=== PATIENT | male | born 1970 | race African-American/Black ===

== ENCOUNTER 2024-07-28 06:54 | Inpatient (IN) | payer OTHER ==
[~2024-07-28] VITALS: Ht 198.1 cm; Wt 155.1 kg
[2024-07-28 06:55] VITALS: O2SAT 97
[2024-07-28] MEDS: PIPERACILLIN/TAZO 3.375G/50ML 50 ML IV ONE (07:13)
[2024-07-28] MEDS: SODIUM CHLORIDE 0.9% (SEPSIS BOLUS) IV ONE (07:13)
[2024-07-28 07:30] LABS: CHLORIDE 109 mEq/L (98-107); POTASSIUM 3.4 mEq/L (3.5-5.1); SODIUM 143 mEq/L (136-145)
[2024-07-28 07:31] LABS: CALCIUM 7.3 mg/dL (8.7-10.4); CARBON DIOXIDE 27 mEq/L (21-32)
[2024-07-28 07:33] LABS: PROTHROMBIN TIME 11.4 sec (9.6-11.0)
[2024-07-28 07:36] LABS: CREATININE 1.3 mg/dL (0.6-1.3); GLUCOSE 217 mg/dL (70-105); UREA NITROGEN BLOOD 39 mg/dL (9-23)
[2024-07-28 07:37] LABS: TROPONIN I HIGH SENSITIVITY 41 ng/L (3.0-53)
[2024-07-28 07:38] LABS: ALANINE AMINOTRANSFERASE 18 IU/L (10-49); ALBUMIN 2.5 g/dL (3.2-4.8); ASPARTATE AMINOTRANSFERASE 15 IU/L (<34); BILIRUBIN TOTAL 0.2 mg/dL (0.1-1.0); PROTEIN TOTAL 4.2 g/dL (6.0-8.3)
[2024-07-28 07:43] LABS: LACTIC ACID 4.2 mmol/L (0.4-2.0)
[2024-07-28 07:45] LABS: BILIRUBIN DIRECT < 0.1 mg/dL (<=3.0)
[2024-07-28] MEDS: VANCOMYCIN 1G PREMIX 200 ML IV ONE (07:49)
[2024-07-28 07:58] LABS: BASOPHILS % 0.3 % (0.0-2.0); DIFFERENTIAL COMMENT 0; EOSINOPHILS % 0.5 % (0.0-5.0); LYMPHOCYTES % 48.5 % (20.0-50.0); MEAN CORPUSCULAR HGB CONC 33.1 g/dL (31.0-37.0); MEAN CORPUSCULAR VOLUME 81.6 fL (80.0-94.0); MONOCYTES % 8.1 % (2.0-8.0); NEUTROPHILS % 42.6 % (40.0-76.0); PLATELET 215 x1000/uL (130-400); RED BLOOD CELL COUNT 2.41 mill/uL (4.7-6.1); RED CELL DISTRIBUTION WIDTH 14.7 % (11.6-14.6); WHITE BLOOD COUNT 7.9 x1000/uL (4.5-11.0)
[2024-07-28 08:22] LABS: HEMATOCRIT. 19.6 % (42.0-52.0); HEMOGLOBIN. 6.5 g/dL (14.0-18.0)
[2024-07-28 20:23] LABS: HEMATOCRIT 21.3 % (42.0-52.0)
[2024-07-28] MEDS: HYDROCODONE/ACETAMINOPHEN 5/325MG TABLET PO PRN (23:40)
[2024-07-29] VITALS (10 sets, daily range): BP systolic 126–149; BP diastolic 78–102; PULSE 96–119; RESP 13–25; TEMP 36.4–37.1; O2SAT 92–100
[2024-07-29] MEDS ORDERED: DOCUSATE SODIUM 100MG CAPSULE PO PRN (00:15)
[2024-07-29] MEDS ORDERED: IPRATROPIUM/ALBUTEROL 0.5-3(2.5)MG/3ML NEB HHN PRN (00:15)
[2024-07-29] MEDS ORDERED: ONDANSETRON HCL 4MG/2ML INJ IV PRN (00:15)
[2024-07-29] MEDS ORDERED: MAGNESIUM/ALUMINUM HYDROXIDE/SIMETHICONE 30ML UDC PO PRN (00:15)
[2024-07-29] MEDS ORDERED: ACETAMINOPHEN 325MG TABLET PO PRN (00:15)
[2024-07-29] MEDS: POTASSIUM CHLORIDE 20MEQ TABLET SR PO NR ×2 (03:09→11:22)
[2024-07-29] MEDS: SODIUM CHLORIDE 0.9% 1,000 ML IV SCH (03:10)
[2024-07-29 03:32] LABS: HEPATITIS B SURFACE ANTIGEN NEGATIVE (Negative)
[2024-07-29 03:53] LABS: HEPATITIS C AB NON REACTIVE (Neg) (Negative)
[2024-07-29] MEDS: ACETAMINOPHEN 325MG TABLET PO PRN (04:48)
[2024-07-29] MEDS: CLONIDINE 0.1MG TABLET PO PRN (06:58)
[2024-07-29 07:47] LABS: CREATINE KINASE MB FRACTION 1.6 ng/mL (0.5-3.6); TROPONIN I HIGH SENSITIVITY 51 ng/L (3.0-53)
[2024-07-29 07:49] LABS: IRON 142 ug/dL (65-175)
[2024-07-29 07:52] LABS: CREATINE KINASE 138 IU/L (46-171); TOTAL IRON BINDING CAPACITY 209 ug/dl (250-425)
[2024-07-29] MEDS ORDERED: DEXTROSE 50% WATER 50ML SYRINGE IV PRN (08:30)
[2024-07-29] MEDS ORDERED: NALOXONE HCL 0.4MG/ML VIAL IV PRN (09:00)
[2024-07-29] MEDS: INSULIN LISPRO 100 UNITS/ML SUBCUT SCH (09:00)
[2024-07-29] MEDS: BLOOD SUGAR DIAGNOSTIC STRIP TEST SCH (09:47)
[2024-07-29] MEDS ORDERED: HYDR25TA PO (13:32)
[2024-07-29] MEDS ORDERED: IBUP-2030 PO (13:32)
[2024-07-29] MEDS ORDERED: SENN-362 PO (13:32)
[2024-07-29] MEDS ORDERED: LOSA50TA41 PO (13:32)
[2024-07-29] MEDS ORDERED: METH-773 PO (13:32)
[2024-07-29 19:15] LABS: BASOPHILS % 0.5 % (0.0-2.0); DIFFERENTIAL COMMENT 0; EOSINOPHILS % 2.1 % (0.0-5.0); MEAN CORPUSCULAR HEMOGLOBIN 27.5 pg (28.0-32.0); MEAN CORPUSCULAR HGB CONC 33.2 g/dL (31.0-37.0); MEAN CORPUSCULAR VOLUME 82.7 fL (80.0-94.0); MONOCYTES % 9.1 % (2.0-8.0); NEUTROPHILS % 50.3 % (40.0-76.0); PLATELET 194 x1000/uL (130-400); RED BLOOD CELL COUNT 2.22 mill/uL (4.7-6.1); RED CELL DISTRIBUTION WIDTH 14.8 % (11.6-14.6); WHITE BLOOD COUNT 9.5 x1000/uL (4.5-11.0)
[2024-07-29 19:22] LABS: CHLORIDE 108 mEq/L (98-107); POTASSIUM 3.9 mEq/L (3.5-5.1); SODIUM 142 mEq/L (136-145)
[2024-07-29 19:23] LABS: CARBON DIOXIDE 29 mEq/L (21-32)
[2024-07-29 19:28] LABS: GLUCOSE 107 mg/dL (70-105); TROPONIN I HIGH SENSITIVITY 30 ng/L (3.0-53); UREA NITROGEN BLOOD 20 mg/dL (9-23)
[2024-07-29 19:30] LABS: CREATINE KINASE 113 IU/L (46-171)
[2024-07-29 20:14] LABS: HEMATOCRIT. 18.4 % (42.0-52.0); HEMOGLOBIN. 6.1 g/dL (14.0-18.0)
[2024-07-29] MEDS ORDERED: *PATIENT'S OWN MEDICATION STORAGE XX SCH (21:45)
[2024-07-29] MEDS: POLYETHYLENE GLYCOL 3350 (17GM) 1 DOSE PACK PO SCH (22:30)
[2024-07-29] MEDS: DOCUSATE SODIUM SUGAR FREE 100MG/10ML UDC NG SCH (22:38)
[2024-07-30] VITALS (20 sets, daily range): BP systolic 94–149; BP diastolic 56–94; PULSE 82–103; RESP 13–21; TEMP 36.50292–37.3; O2SAT 97–99
[2024-07-30] MEDS: METOCLOPRAMIDE HCL 10MG/2ML VIAL IV SCH (00:24)
[2024-07-30 06:56] LABS: BASOPHILS % 0.5 % (0.0-2.0); DIFFERENTIAL COMMENT 0; EOSINOPHILS % 2.4 % (0.0-5.0); LYMPHOCYTES % 36.6 % (20.0-50.0); MEAN CORPUSCULAR HEMOGLOBIN 28.6 pg (28.0-32.0); MEAN CORPUSCULAR HGB CONC 33.7 g/dL (31.0-37.0); MEAN PLATELET VOLUME 9.1 fl (7.4-10.4); MONOCYTES % 8.7 % (2.0-8.0); NEUTROPHILS % 51.8 % (40.0-76.0); PLATELET 182 x1000/uL (130-400); RED BLOOD CELL COUNT 2.24 mill/uL (4.7-6.1); RED CELL DISTRIBUTION WIDTH 16.1 % (11.6-14.6); WHITE BLOOD COUNT 9.9 x1000/uL (4.5-11.0)
[2024-07-30 07:59] LABS: THYROID STIMULATING HORMONE 3.11 uIU/mL (0.55-4.78)
[2024-07-30 08:08] LABS: CALCIUM 8.2 mg/dL (8.7-10.4); CHLORIDE 108 mEq/L (98-107); POTASSIUM 3.7 mEq/L (3.5-5.1); SODIUM 141 mEq/L (136-145)
[2024-07-30 08:09] LABS: CARBON DIOXIDE 27 mEq/L (21-32)
[2024-07-30 08:14] LABS: GLUCOSE 112 mg/dL (70-105); TRIGLYCERIDE 100 mg/dL (0-150); UREA NITROGEN BLOOD 18 mg/dL (9-23)
[2024-07-30 08:15] LABS: LDL CHOLESTEROL 47 mg/dL (5-100)
[2024-07-30 08:16] LABS: CHOLESTEROL 95 mg/dL (<200); HDL CHOLESTEROL 27 mg/dL (>55)
[2024-07-30 08:58] LABS: HEMOGLOBIN. 6.4 g/dL (14.0-18.0)
[2024-07-30] MEDS: NA PHOS,M-B/NA PHOS,DI-BA ENEMA 118ML PR NR (15:52)
[2024-07-30] MEDS: LACTULOSE 20G/30ML UDC PO SCH (15:52)
[2024-07-30] MEDS: PANTOPRAZOLE SODIUM 40 MG/VIAL IV SCH (21:32)
[2024-07-30 21:59] LABS: HEMATOCRIT 21.4 % (42.0-52.0); HEMOGLOBIN 7.4 g/dL (14.0-18.0)
[2024-07-31] VITALS (16 sets, daily range): BP systolic 92–159; BP diastolic 69–91; PULSE 79–108; RESP 14–27; TEMP 36.61404–37.11408; O2SAT 95–100
[2024-07-31] MEDS: HYDROCODONE/ACETAMINOPHEN 5/325MG TABLET PO PRN (00:51)
[2024-07-31 06:21] LABS: CHLORIDE 108 mEq/L (98-107); POTASSIUM 3.4 mEq/L (3.5-5.1); SODIUM 142 mEq/L (136-145)
[2024-07-31 06:23] LABS: CALCIUM 8.1 mg/dL (8.7-10.4); CARBON DIOXIDE 29 mEq/L (21-32)
[2024-07-31 06:28] LABS: GLUCOSE 103 mg/dL (70-105); UREA NITROGEN BLOOD 15 mg/dL (9-23)
[2024-07-31 06:30] LABS: ALANINE AMINOTRANSFERASE 26 IU/L (10-49); ALBUMIN 2.9 g/dL (3.2-4.8); ASPARTATE AMINOTRANSFERASE 23 IU/L (<34); BILIRUBIN DIRECT 0.1 mg/dL (<=3.0)
[2024-07-31 06:31] LABS: BILIRUBIN TOTAL 0.4 mg/dL (0.1-1.0); PROTEIN TOTAL 4.8 g/dL (6.0-8.3)
[2024-07-31 06:37] LABS: FERRITIN 41 ng/mL (22-322); FOLIC ACID (FOLATE) SERUM 8.99 ng/mL (>5.38); VITAMIN B12 SERUM 656 pg/mL (211-911)
[2024-07-31 07:28] LABS: BASOPHILS % 0.4 % (0.0-2.0); DIFFERENTIAL COMMENT 0; EOSINOPHILS % 1.8 % (0.0-5.0); LYMPHOCYTES % 33.5 % (20.0-50.0); MEAN CORPUSCULAR HGB CONC 34.3 g/dL (31.0-37.0); MEAN CORPUSCULAR VOLUME 84.5 fL (80.0-94.0); MEAN PLATELET VOLUME 8.8 fl (7.4-10.4); MONOCYTES % 8.2 % (2.0-8.0); NEUTROPHILS % 56.1 % (40.0-76.0); PLATELET 176 x1000/uL (130-400); RED BLOOD CELL COUNT 2.17 mill/uL (4.7-6.1); RED CELL DISTRIBUTION WIDTH 16.3 % (11.6-14.6); WHITE BLOOD COUNT 8.9 x1000/uL (4.5-11.0)
[2024-07-31 08:16] LABS: HEMOGLOBIN. 6.3 g/dL (14.0-18.0)
[2024-07-31 08:17] LABS: HEMATOCRIT. 18.3 % (42.0-52.0)
[2024-07-31] MEDS: DOCUSATE SODIUM 100MG CAPSULE PO SCH (09:00)
[2024-07-31] MEDS: SUCRALFATE 1G TABLET PO SCH (09:42)
[2024-07-31] MEDS ORDERED: IOHEXOL-350 100 ML BOTTLE ONE (10:31)
[2024-07-31] MEDS: POTASSIUM CHLORIDE 20MEQ TABLET SR PO NR (13:50)
[2024-08-01] VITALS (21 sets, daily range): BP systolic 107–147; BP diastolic 72–100; PULSE 78–119; RESP 13–23; TEMP 36.61404–37.1; O2SAT 92–99
[2024-08-01 00:09] LABS: HEMATOCRIT 21.1 % (42.0-52.0); HEMOGLOBIN 7.2 g/dL (14.0-18.0)
[2024-08-01 00:18] LABS: INR 0.9; PROTHROMBIN TIME 10.1 sec (9.6-11.0)
[2024-08-01 12:23] LABS: HEMATOCRIT 24.9 % (42.0-52.0); HEMOGLOBIN 8.3 g/dL (14.0-18.0)
[2024-08-01 12:44] LABS: INR 0.9; PROTHROMBIN TIME 10.5 sec (9.6-11.0)
[2024-08-01 22:34] LABS: BASOPHILS % 0.4 % (0.0-2.0); EOSINOPHILS % 2.4 % (0.0-5.0); HEMATOCRIT. 26.5 % (42.0-52.0); HEMOGLOBIN. 8.7 g/dL (14.0-18.0); LYMPHOCYTES % 28.4 % (20.0-50.0); MEAN CORPUSCULAR HEMOGLOBIN 27.9 pg (28.0-32.0); MEAN CORPUSCULAR HGB CONC 32.7 g/dL (31.0-37.0); MEAN CORPUSCULAR VOLUME 85.2 fL (80.0-94.0); MEAN PLATELET VOLUME 8.6 fl (7.4-10.4); MONOCYTES % 8.4 % (2.0-8.0); NEUTROPHILS % 60.4 % (40.0-76.0); PLATELET 233 x1000/uL (130-400); RED BLOOD CELL COUNT 3.11 mill/uL (4.7-6.1); RED CELL DISTRIBUTION WIDTH 16.6 % (11.6-14.6); WHITE BLOOD COUNT 8.1 x1000/uL (4.5-11.0)
[2024-08-01 22:43] LABS: CHLORIDE 108 mEq/L (98-107); POTASSIUM 3.4 mEq/L (3.5-5.1); SODIUM 143 mEq/L (136-145)
[2024-08-01 22:44] LABS: CALCIUM 8.5 mg/dL (8.7-10.4); CARBON DIOXIDE 27 mEq/L (21-32)
[2024-08-01 22:49] LABS: CREATININE 1.2 mg/dL (0.6-1.3); GLUCOSE 116 mg/dL (70-105); UREA NITROGEN BLOOD 15 mg/dL (9-23)
[2024-08-02] VITALS (16 sets, daily range): BP systolic 108–156; BP diastolic 79–105; PULSE 59–100; RESP 11–29; TEMP 36.4–37.1; O2SAT 81–99
[2024-08-02 04:59] LABS: BASOPHILS % 0.4 % (0.0-2.0); HEMATOCRIT. 23.4 % (42.0-52.0); LYMPHOCYTES % 34.8 % (20.0-50.0); MEAN CORPUSCULAR HEMOGLOBIN 29.1 pg (28.0-32.0); MEAN CORPUSCULAR VOLUME 85.7 fL (80.0-94.0); MEAN PLATELET VOLUME 8.5 fl (7.4-10.4); MONOCYTES % 9.8 % (2.0-8.0); PLATELET 218 x1000/uL (130-400); RED BLOOD CELL COUNT 2.73 mill/uL (4.7-6.1); RED CELL DISTRIBUTION WIDTH 16.7 % (11.6-14.6); WHITE BLOOD COUNT 6.7 x1000/uL (4.5-11.0)
[2024-08-02 05:06] LABS: CHLORIDE 110 mEq/L (98-107); POTASSIUM 3.7 mEq/L (3.5-5.1); SODIUM 143 mEq/L (136-145)
[2024-08-02 05:07] LABS: CALCIUM 8.2 mg/dL (8.7-10.4); CARBON DIOXIDE 28 mEq/L (21-32)
[2024-08-02 05:12] LABS: CREATININE 1.1 mg/dL (0.6-1.3); GLUCOSE 108 mg/dL (70-105); UREA NITROGEN BLOOD 13 mg/dL (9-23)
[2024-08-02 05:14] LABS: ALANINE AMINOTRANSFERASE 39 IU/L (10-49); ASPARTATE AMINOTRANSFERASE 31 IU/L (<34); BILIRUBIN TOTAL 0.3 mg/dL (0.1-1.0); PROTEIN TOTAL 5.2 g/dL (6.0-8.3)
[2024-08-02 05:39] LABS: INR 0.9; PROTHROMBIN TIME 10.2 sec (9.6-11.0)
[2024-08-02] MEDS ORDERED: PANT40VI IV (15:21)
[2024-08-02] MEDS: MORPHINE SULFATE 2 MG/ML INJ (NOT FOR IM USE) IV PRN (20:17)
== END 2024-08-02 22:18 | disposition short-term general hospital (02) | DRG 872 ==
LOC: ER 07:16 → 5EST 08:54 → EDBEDREQ 08:57
PROVIDERS: ADMIT Internal Medicine; ATTEND Internal Medicine
PROC: 30233N1 Transfusion of Nonautologous Red Blood Cells into Peripheral Vein, Percutaneous Approach (ICD-10-PCS; principal; 2024-07-28)
DX: A41.9 Sepsis, unspecified organism (principal); K92.2 Gastrointestinal hemorrhage, unspecified; E87.20 Acidosis, unspecified; D64.9 Anemia, unspecified; E87.6 Hypokalemia; R73.9 Hyperglycemia, unspecified; I10 Essential (primary) hypertension; I25.10 Atherosclerotic heart disease of native coronary artery without angina pectoris; K59.00 Constipation, unspecified; E88.09 Other disorders of plasma-protein metabolism, not elsewhere classified; M54.2 Cervicalgia; I95.9 Hypotension, unspecified; Z87.891 Personal history of nicotine dependence; Z79.899 Other long term (current) drug therapy
CPT/HCPCS: 36415; 71045; 74018; 74177; 80048; 80053; 80061; 80076; 82270; 82550; 82553; 82607; 82728; 82746; 82962; 83036; 83540; 83550; 83605; 83735; 84145; 84443; 84484; 85014; 85018; 85025; 85044; 85049; 85384; 86705; 86850; 86900; 86920; 87340; 93005; 93306; 93970; 99291; A4606; J1815; J2270; J2470; J2543; J2765; J3370; J7030; P9016; Q9967